=== PATIENT | female | born 1960 | race Caucasian/White ===

== ENCOUNTER 2016-09-25 07:23 | Emergency (ER) | payer OTHER | END 2016-09-25 11:36 | disposition other institution (70) | LOC: FER 07:23 | DX: S32.039A Unspecified fracture of third lumbar vertebra, initial encounter for closed fracture (principal); F17.210 Nicotine dependence, cigarettes, uncomplicated; W11.XXXA Fall on and from ladder, initial encounter; Y92.009 Unspecified place in unspecified non-institutional (private) residence as the place of occurrence of the external cause | CPT/HCPCS: 72110; 72131; 72170; 96372; J1885; J2270; J2405 ==